=== PATIENT | male | born 1975 | race Two or more races ===

== ENCOUNTER 2018-08-03 00:41 | Emergency (ER) | payer OTHER ==
[2018-08-03] MEDS ORDERED: SODIUM CHLORIDE 0.9% 1,000 ML IV STA (01:09)
--- NOTE | 2018-08-03 01:09 | ED ---
Seizure HPI - General Chief Complaint: Seizure Stated Complaint: Poss seizure Time Seen by Provider: 08/03/18 01:07 Source: patient, family, EMS Mode of arrival: EMS - History of Present Illness Initial Comments: Memo is a 42-year-old male who presents the emergency department today via EMS for evaluation of possible seizure-like activity. Memo reports he's just been feeling really emotional lately, he had a recent breakup with his significant other and moved from [facility] to [place] to move in with his mother while he gets back on his feet. Patient reports he just became overwhelmed with motions today began shaking the mother became concerned he may have a seizure so she 911. Patient has no history of seizures he does not feel he has had a seizure he recalls the entire event. Patient denies any acute complaints. does state he's been feeling very emotional lately, he doesn't have any social support besides his mother in this area and doesn't have a therapist or counselor. Patient does have a history of anxiety but is not on any medications for that. Patient would like resources for outpatient counseling. Review of Systems ROS Statement: Those systems with pertinent positive or pertinent negative responses have been documented in the HPI. ROS Other: All systems not noted in ROS Statement are negative. Past Medical History Additional Past Medical History / Comment(s): HIV Additional Past Surgical History / Comment(s): UNKNOWN Smoking Status: Current every day smoker Past Alcohol Use History: Daily Past Drug Use History: None Reported General Exam - General Exam Comments Initial Comments: Physical Exam GENERAL: Patient is well-developed and well-nourished. Patient is nontoxic and well- hydrated and is in no distress. HENT: Normocephalic, Atraumatic. EYES: PERRL, EOMI PULMONARY: Unlabored respirations. No audible rales rhonchi or wheezing was noted. CARDIOVASCULAR: There is a regular rate and rhythm without any murmurs gallops or rubs. ABDOMEN: Soft and nontender with normal bowel sounds. SKIN: Skin is clear with no lesions or rashes and otherwise unremarkable. : Deferred NEUROLOGIC: Patient is alert and oriented x3. Moving all extremities spontaneously Seizure activity MUSCULOSKELETAL: Normal extremities with adequate strength and full range of motion. No lower extremity swelling or edema. No calf tenderness. PSYCHIATRIC: Anxious, depressed denies any suicidal or homicidal ideation Course Vital Signs 08/03/18 08/03/18 08/03/18 00:45 00:50 00:52 Temperature 97.5 F L Pulse Rate 73 72 Respiratory 9 L 18 Rate Blood Pressure 121/79 121/79 O2 Sat by Pulse 100 95 Oximetry 08/03/18 08/03/18 08/03/18 01:20 01:30 01:40 Temperature Pulse Rate 75 96 Respiratory 18 18 11 L Rate Blood Pressure 121/79 135/86 O2 Sat by Pulse Oximetry 08/03/18 08/03/18 08/03/18 01:50 02:00 02:10 Temperature Pulse Rate 74 86 90 Respiratory 8 L 6 L 14 Rate Blood Pressure 60/34 134/89 142/96 O2 Sat by Pulse 87 L 99 Oximetry 08/03/18 08/03/18 08/03/18 02:20 02:30 02:40 Temperature Pulse Rate 90 71 70 Respiratory 14 15 18 Rate Blood Pressure O2 Sat by Pulse Oximetry 08/03/18 08/03/18 08/03/18 02:50 03:00 03:47 Temperature 98.4 F Pulse Rate 73 85 67 Respiratory 10 L 13 19 Rate Blood Pressure 126/89 O2 Sat by Pulse 97 Oximetry Medical Decision Making - Medical Decision Making Patient was seen and evaluated history was obtained from the patient mother bedside as well as EMS This is a pleasant 42-year-old gentleman who is under a lot of emotional stress after breakup he reports that he came home tonight he felt very agitated mom reports that he was shaking patient recalls this event he states he felt like he was about crying. He did not have any loss of bowel or bladder continence, he does not have any tongue biting he did not have any amnesia to the event. Patient doesn't have a history of seizure disorder. The patient does have a history of HIV but is medicated, reports that he has had normal CD4 count Labs and head CT were unremarkable Labs and head CT were without any significant abnormality urine drug screen is positive for amphetamines and methamphetamines. At this point I do not feel the patient had a seizure I do feel he likely had shaking secondary to crying her an emotional outburst. Patient agrees with this. Patient's comfortable with plan for discharge home. Patient was provided with outpatient resources for counseling for depression and anxiety - Lab Data Result diagrams: 08/03/18 00:57 08/03/18 02:26 Lab Results 08/03/18 08/03/18 08/03/18 Range/Units 00:57 01:11 01:15 WBC 11.7 H (3.8-10.6) k/uL RBC 4.89 (4.30-5.90) m/uL Hgb 13.8 (13.0-17.5) gm/dL Hct 42.8 (39.0-53.0) % MCV 87.4 (80.0-100.0) fL MCH 28.2 (25.0-35.0) pg MCHC 32.3 (31.0-37.0) g/dL RDW 13.9 (11.5-15.5) % Plt Count 369 (150-450) k/uL Neutrophils % 73 % Lymphocytes % 18 % Monocytes % 5 % Eosinophils % 1 % Basophils % 1 % Neutrophils # 8.5 H (1.3-7.7) k/uL Lymphocytes # 2.2 (1.0-4.8) k/uL Monocytes # 0.6 (0-1.0) k/uL Eosinophils # 0.2 (0-0.7) k/uL Basophils # 0.1 (0-0.2) k/uL Sodium (137-145) mmol/L Potassium (3.5-5.1) mmol/L Chloride (98-107) mmol/L Carbon Dioxide (22-30) mmol/L Anion Gap mmol/L BUN (9-20) mg/dL Creatinine (0.66-1.25) mg/dL Est GFR (CKD-EPI)AfAm (>60 ml/min/1.73 sqM) Est GFR (CKD-EPI)NonAf (>60 ml/min/1.73 sqM) Glucose (74-99) mg/dL POC Glucose (mg/dL) 80 (75-99) mg/dL POC Glu Director It Project ID Miguel Angel Delgadillo Plasma Lactic Acid Erik (0.7-2.0) mmol/L Calcium (8.4-10.2) mg/dL Total Bilirubin (0.2-1.3) mg/dL AST (17-59) U/L ALT (21-72) U/L Alkaline Phosphatase (38-126) U/L Total Protein (6.3-8.2) g/dL Albumin (3.5-5.0) g/dL Urine Color Light Yellow Urine Appearance Clear (Clear) Urine pH 6.0 (5.0-8.0) Ur Specific [place] 1.008 (1.001-1.035) Urine Protein Negative (Negative) Urine Glucose (UA) Negative (Negative) Urine Ketones Negative (Negative) Urine Blood Negative (Negative) Urine Nitrite Negative (Negative) Urine Bilirubin Negative (Negative) Urine Urobilinogen <2.0 (<2.0) mg/dL Ur Leukocyte Esterase Negative (Negative) Urine Opiates Screen Not Detected (NotDetected) Ur Oxycodone Screen Not Detected (NotDetected) Urine Methadone Screen Not Detected (NotDetected) Ur Propoxyphene Screen Not Detected (NotDetected) Ur Barbiturates Screen Not Detected (NotDetected) U Tricyclic Antidepress Not Detected (NotDetected) Ur Phencyclidine Scrn Not Detected (NotDetected) Ur Amphetamines Screen Detected H (NotDetected) U Methamphetamines Scrn Detected H (NotDetected) U Benzodiazepines Scrn Not Detected (NotDetected) Urine Cocaine Screen Not Detected (NotDetected) U Marijuana (THC) Screen Not Detected (NotDetected) 08/03/18 08/03/18 Range/Units 02:26 02:26 WBC (3.8-10.6) k/uL RBC (4.30-5.90) m/uL Hgb (13.0-17.5) gm/dL Hct (39.0-53.0) % MCV (80.0-100.0) fL MCH (25.0-35.0) pg MCHC (31.0-37.0) g/dL RDW (11.5-15.5) % Plt Count (150-450) k/uL Neutrophils % % Lymphocytes % % Monocytes % % Eosinophils % % Basophils % % Neutrophils # (1.3-7.7) k/uL Lymphocytes # (1.0-4.8) k/uL Monocytes # (0-1.0) k/uL Eosinophils # (0-0.7) k/uL Basophils # (0-0.2) k/uL Sodium 141 (137-145) mmol/L Potassium 4.0 (3.5-5.1) mmol/L Chloride 107 (98-107) mmol/L Carbon Dioxide 28 (22-30) mmol/L Anion Gap 6 mmol/L BUN 11 (9-20) mg/dL Creatinine 0.72 (0.66-1.25) mg/dL Est GFR (CKD-EPI)AfAm >90 (>60 ml/min/1.73 sqM) Est GFR (CKD-EPI)NonAf >90 (>60 ml/min/1.73 sqM) Glucose 102 H (74-99) mg/dL POC Glucose (mg/dL) (75-99) mg/dL POC Glu Director It Project ID Plasma Lactic Acid Erik 0.7 (0.7-2.0) mmol/L Calcium 8.8 (8.4-10.2) mg/dL Total Bilirubin 0.3 (0.2-1.3) mg/dL AST 19 (17-59) U/L ALT 20 L (21-72) U/L Alkaline Phosphatase 93 (38-126) U/L Total Protein 6.5 (6.3-8.2) g/dL Albumin 3.8 (3.5-5.0) g/dL Urine Color Urine Appearance (Clear) Urine pH (5.0-8.0) Ur Specific [place] (1.001-1.035) Urine Protein (Negative) Urine Glucose (UA) (Negative) Urine Ketones (Negative) Urine Blood (Negative) Urine Nitrite (Negative) Urine Bilirubin (Negative) Urine Urobilinogen (<2.0) mg/dL Ur Leukocyte Esterase (Negative) Urine Opiates Screen (NotDetected) Ur Oxycodone Screen (NotDetected) Urine Methadone Screen (NotDetected) Ur Propoxyphene Screen (NotDetected) Ur Barbiturates Screen (NotDetected) U Tricyclic Antidepress (NotDetected) Ur Phencyclidine Scrn (NotDetected) Ur Amphetamines Screen (NotDetected) U Methamphetamines Scrn (NotDetected) U Benzodiazepines Scrn (NotDetected) Urine Cocaine Screen (NotDetected) U Marijuana (THC) Screen (NotDetected) Disposition Clinical Impression: Episode of shaking Disposition: HOME SELF-CARE Condition: Stable Instructions (If sedation given, give patient instructions): Hyperventilation (ED) Is patient prescribed a controlled substance at d/c from ED?: No Referrals: None,Stated [Primary Care Provider] - 1-2 days
[2018-08-03 01:21] LABS: Glucose,Whole Blood 80 mg/dL (75-99)
--- NOTE | 2018-08-03 01:48 | CT ---
EXAM: CT Head Without Intravenous Contrast CLINICAL HISTORY: ITS.REASON CT Reason: seizure activity TECHNIQUE: Axial computed tomography images of the head/brain without intravenous contrast. CTDI is 49.1 mGy and DLP is 1172.4 mGy-cm. This CT exam was performed using one or more of the following dose reduction techniques: automated exposure control, adjustment of the mA and/or kV according to patient size, and/or use of iterative reconstruction technique. COMPARISON: No relevant prior studies available. FINDINGS: Brain: Unremarkable. No acute intracranial hemorrhage. No midline shift or herniation. Ventricles: Unremarkable. No ventriculomegaly. Bones/joints: No acute fracture. Soft tissues: Unremarkable. Sinuses: Unremarkable as visualized. Mastoid air cells: Unremarkable as visualized. IMPRESSION: No acute intracranial findings by noncontrast CT head.
[2018-08-03 02:02] LABS: Basophils # (A) 0.1 k/uL (0-0.2); Basophils % (A) 1 %; Eosinophils # (A) 0.2 k/uL (0-0.7); Eosinophils % (A) 1 %; HCT 42.8 % (39.0-53.0); HGB 13.8 gm/dL (13.0-17.5); Lymphocytes # (A) 2.2 k/uL (1.0-4.8); Lymphocytes % (A) 18 %; MCH 28.2 pg (25.0-35.0); MCHC 32.3 g/dL (31.0-37.0); MCV 87.4 fL (80.0-100.0); Mean Platelet Volume 7.4; Monocytes # (A) 0.6 k/uL (0-1.0); Monocytes % (A) 5 %; Neutrophils # (A) 8.5 k/uL (1.3-7.7); Neutrophils % (A) 73 %; Platelet Count 369 k/uL (150-450); RBC 4.89 m/uL (4.30-5.90); RDW 13.9 % (11.5-15.5); WBC 11.7 k/uL (3.8-10.6)
[2018-08-03 02:03] LABS: Appearance,Urine Clear (Clear); Bilirubin,Urine Negative (Negative); Blood,Urine Negative (Negative); Color,Urine Light Yellow; Glucose,Urine (UA) Negative (Negative); Ketones,Urine Negative (Negative); Leukocyte Esterase,Urine Negative (Negative); Nitrite,Urine Negative (Negative); Protein,Urine Negative (Negative); Specific Gravity,Urine 1.008 (1.001-1.035); Urobilinogen,Urine <2.0 mg/dL (<2.0)
[2018-08-03 02:14] LABS: Amphetamine Screen,Urine Detected (NotDetected); Barbiturate Screen,Urine Not Detected (NotDetected); Benzodiazepines Screen,Urine Not Detected (NotDetected); Cocaine Screen,Urine Not Detected (NotDetected); Methadone Screen, Urine Not Detected (NotDetected); Opiate Screen,Urine Not Detected (NotDetected); Oxycodone Screen, Urine Not Detected (NotDetected); Phencyclidine Screen,Urine Not Detected (NotDetected); Tricyclic Antidepressant,Urine Not Detected (NotDetected); Urn Cannabinoid Scrn Not Detected (NotDetected)
[2018-08-03 02:46] LABS: ALT 20 U/L (21-72); AST 19 U/L (17-59); African American GFR (CKD) >90 (>60 ml/min/1.73 sqM); Albumin 3.8 g/dL (3.5-5.0); Alkaline Phosphatase 93 U/L (38-126); Anion Gap 6 mmol/L; Blood Urea Nitrogen 11 mg/dL (9-20); Calcium 8.8 mg/dL (8.4-10.2); Carbon Dioxide 28 mmol/L (22-30); Chloride 107 mmol/L (98-107); Glucose 102 mg/dL (74-99); Sodium 141 mmol/L (137-145); Total Bilirubin 0.3 mg/dL (0.2-1.3); Total Protein 6.5 g/dL (6.3-8.2)
[2018-08-03 03:58] VITALS: BP 126/89; PULSE 67; RESP 19; TEMP 98.4
== END 2018-08-03 03:47 | disposition home or self-care (01) ==
LOC: EC 00:41
DX: R25.1 Tremor, unspecified (principal); Z21 Asymptomatic human immunodeficiency virus [HIV] infection status; F17.200 Nicotine dependence, unspecified, uncomplicated
CPT/HCPCS: 36415; 70450; 80053; 80306; 81003; 83605; 85025; 96360; 99285

== ENCOUNTER 2018-08-15 03:48 | Emergency (ER) | payer OTHER ==
[2018-08-15 03:56] LABS: Glucose,Whole Blood 125 mg/dL (75-99)
[2018-08-15 03:59] VITALS: RESP 16; TEMP 98.1
[2018-08-15] MEDS ORDERED: DIPH,PERTUS(ACELL)TETVAC-LF 0.5 ML VIAL IM ONE (04:09)
[2018-08-15] MEDS ORDERED: ERYTHROMYCIN 5 MG/GM OPHTH OINT 3.5 GM TUBE LEFT EYE STA (04:09)
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
[2018-08-15 04:21] LABS: Basophils # (A) 0.1 k/uL (0-0.2); Basophils % (A) 1 %; Eosinophils # (A) 0.4 k/uL (0-0.7); Eosinophils % (A) 3 %; HCT 46.1 % (39.0-53.0); HGB 14.9 gm/dL (13.0-17.5); Lymphocytes # (A) 1.6 k/uL (1.0-4.8); Lymphocytes % (A) 12 %; MCH 28.6 pg (25.0-35.0); MCHC 32.5 g/dL (31.0-37.0); MCV 88.2 fL (80.0-100.0); Monocytes # (A) 0.6 k/uL (0-1.0); Monocytes % (A) 4 %; Neutrophils # (A) 10.3 k/uL (1.3-7.7); Neutrophils % (A) 79 %; Platelet Count 427 k/uL (150-450); Prothrombin Time 10.8 sec (9.0-12.0); RBC 5.22 m/uL (4.30-5.90); RDW 14.1 % (11.5-15.5); WBC 13.1 k/uL (3.8-10.6)
[2018-08-15 04:37] LABS: African American GFR (CKD) >90 (>60 ml/min/1.73 sqM); Anion Gap 8 mmol/L; Blood Urea Nitrogen 10 mg/dL (9-20); Calcium 9.1 mg/dL (8.4-10.2); Carbon Dioxide 27 mmol/L (22-30); Chloride 108 mmol/L (98-107); Glucose 153 mg/dL (74-99); Magnesium 2.5 mg/dL (1.6-2.3); Potassium 4.7 mmol/L (3.5-5.1); Sodium 143 mmol/L (137-145)
--- NOTE | 2018-08-15 04:43 | XR ---
ADDENDUM - Added by Homero Murcia M.D. on 08/15/2018 5:01 AM (-04:00) Correction: Questionable oblique fracture at the medial base of second metatarsal with 1 mm separation, may suggest Lisfranc fracture, best seen on frontal view. Please correlate with mechanism of injury and location of pain. EXAM: XR Right Foot Complete, 3 or More Views CLINICAL HISTORY: Pain TECHNIQUE: Frontal, lateral and oblique views of the right foot. COMPARISON: No relevant prior studies available. FINDINGS: Bones/joints: Unremarkable. No acute fracture. No dislocation. Soft tissues: Unremarkable. No radiopaque foreign body. IMPRESSION: Normal right foot x-rays. <MYCVCSECTION> [employer] 08/15/18 05:28 Verify Receipt Verified receipt with Martina Elias
[2018-08-15] MEDS ORDERED: KETOROLAC 30 MG/ML 1 ML VIAL IVP STA (04:53)
--- NOTE | 2018-08-15 04:59 | CT ---
EXAM: CT Head Without Intravenous Contrast CLINICAL HISTORY: fall during seizure TECHNIQUE: Axial computed tomography images of the head/brain without intravenous contrast. CTDI is 45.2 mGy and DLP is 1014 mGy-cm. This CT exam was performed using one or more of the following dose reduction techniques: automated exposure control, adjustment of the mA and/or kV according to patient size, and/or use of iterative reconstruction technique. Coronal and sagittal reformatted images were created and reviewed. COMPARISON: 08/03/18 FINDINGS: Brain: Unremarkable. No hemorrhage. No significant white matter disease. No edema. Ventricles: Unremarkable. No ventriculomegaly. Bones/joints: Unremarkable. No acute fracture. Soft tissues: Suspect mild bilateral forehead scalp swelling Sinuses: Unremarkable as visualized. No acute sinusitis. Mastoid air cells: Unremarkable as visualized. No mastoid effusion. IMPRESSION: No intracranial hemorrhage or skull fracture. EXAM: CT Cervical Spine Without Intravenous Contrast CLINICAL HISTORY: fall during seizure TECHNIQUE: Axial computed tomography images of the cervical spine without intravenous contrast. CTDI is 7.6 mGy and DLP is 211.4 mGy-cm. This CT exam was performed using one or more of the following dose reduction techniques: automated exposure control, adjustment of the mA and/or kV according to patient size, and/or use of iterative reconstruction technique. Coronal and sagittal reformatted images were created and reviewed. COMPARISON: No relevant prior studies available. FINDINGS: Vertebrae: Unremarkable. No acute fracture. Discs/spinal canal/neural foramina: Mild degenerative disc disease, worse at C4-C6. No spinal canal stenosis. Soft tissues: Unremarkable. IMPRESSION: No acute findings.
--- NOTE | 2018-08-15 05:02 | XR ---
EXAM: XR Chest, 2 Views CLINICAL HISTORY: Pain TECHNIQUE: Frontal and lateral views of the chest. COMPARISON: No relevant prior studies available. FINDINGS: Lungs: Unremarkable. No consolidation. Pleural space: Unremarkable. No pneumothorax. Heart: Unremarkable. No cardiomegaly. Mediastinum: Unremarkable. Bones/joints: Unremarkable. IMPRESSION: Normal chest x-rays.
--- NOTE | 2018-08-15 05:06 | XR ---
EXAM: XR Left Shoulder Complete, 2 or More Views CLINICAL HISTORY: Pain TECHNIQUE: Two or more views of the left shoulder. COMPARISON: No relevant prior studies available. FINDINGS: Bones/joints: age indeterminate fracture in the lateral aspect of left third rib, can be chronic. No dislocation. Soft tissues: Unremarkable. IMPRESSION: age indeterminate fracture in the lateral aspect of left third rib, can be chronic. Please correlate with mechanism of injury, location of pain and history of old trauma in this region
[2018-08-15 06:48] VITALS: BP 132/81; PULSE 77
== END 2018-08-15 06:52 | disposition left against medical advice (07) ==
LOC: EC 03:48
DX: S22.32XA Fracture of one rib, left side, initial encounter for closed fracture (principal); S92.321A Displaced fracture of second metatarsal bone, right foot, initial encounter for closed fracture; S01.112A Laceration without foreign body of left eyelid and periocular area, initial encounter; S01.81XA Laceration without foreign body of other part of head, initial encounter; R56.9 Unspecified convulsions; Z21 Asymptomatic human immunodeficiency virus [HIV] infection status; Z23 Encounter for immunization; Z91.14 Patient's other noncompliance with medication regimen; F17.200 Nicotine dependence, unspecified, uncomplicated; W19.XXXA Unspecified fall, initial encounter
CPT/HCPCS: 36415; 93005; 80048; 83605; 83735; 84484; 85025; 85610; 73030; 73630; 71046; 72125; 70450; 90715; 99285; 96374; 90471; J1885

== ENCOUNTER 2021-09-14 21:20 | Emergency (ER) | payer OTHER ==
[2021-09-14 21:29] VITALS: BP 122/99; PULSE 116; RESP 18; TEMP 98
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
[2021-09-14] MEDS ORDERED: NICOTINE 14MG/24HR PATCH TRANSDERM STA (22:45)
== END 2021-09-15 02:48 | disposition home or self-care (01) ==
LOC: EC 21:20
DX: S00.531A Contusion of lip, initial encounter (principal); B20 Human immunodeficiency virus [HIV] disease; X58.XXXA Exposure to other specified factors, initial encounter
CPT/HCPCS: 82075; 99283; S4990

== ENCOUNTER 2024-02-05 10:27 | Emergency (ER) | payer OTHER ==
[2024-02-05 10:40] VITALS: RESP 18
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
[2024-02-05] MEDS: IBUPROFEN 800 MG TAB PO STA (11:41)
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
[2024-02-05] MEDS: ACET/COD 300 MG/30 MG STARTER PACK 6 TAB BTL PO STA (13:05)
[2024-02-05] MEDS: ONDANSETRON 4 MG ODT STARTER PACK 2 TAB BTL PO STA (13:06)
[2024-02-05 13:10] VITALS: BP 145/89; PULSE 89; TEMP 97.9
== END 2024-02-05 13:10 | disposition home or self-care (01) ==
LOC: EC 10:27
DX: S59.901A Unspecified injury of right elbow, initial encounter (principal); E11.9 Type 2 diabetes mellitus without complications; I10 Essential (primary) hypertension; J44.9 Chronic obstructive pulmonary disease, unspecified; I25.10 Atherosclerotic heart disease of native coronary artery without angina pectoris; Z85.9 Personal history of malignant neoplasm, unspecified; I63.9 Cerebral infarction, unspecified; B20 Human immunodeficiency virus [HIV] disease; G47.30 Sleep apnea, unspecified; E66.9 Obesity, unspecified; Z68.25 Body mass index [BMI] 25.0-25.9, adult; F17.200 Nicotine dependence, unspecified, uncomplicated; Y04.0XXA Assault by unarmed brawl or fight, initial encounter
CPT/HCPCS: 73060; 73080; 72125; 70450; 99284; S0119